=== PATIENT | female | born 1970 | race Caucasian/White ===

== ENCOUNTER 2019-08-09 20:44 | Emergency (ER) | payer OTHER ==
[~2019-08-09] VITALS: Ht 180.3 cm; Wt 221.4 kg
--- OUTSIDE RECORDS SUMMARY | 2019-08-09 20:49 | XMS REPORT | Clinical Summary ---
Author Author [facility] Address Unknown Phone Unavailable Care Team Providers Care Field Naturalist Name Role Phone Jena Lee ElioDanyMahnaz PCP Unavailable Allergies Comments Active Allergy Reactions Severity Noted Date Adhesive Tape Rash Low 09/08/2017 Azithromycin Diarrhea, Nausea And Vomiting Medications Not on file Active Problems Not on file Encounters Care Team Description Date Type Specialty Guera Verdugo MD SOB (shortness of breath) 10/11/2018 Hospital Radiology Encounter 10/11/2018 Orders Only General Internal Medicine 10/10/2018 Travel Guera Vredugo MD SOB (shortness of breath) (Primary Dx) 10/03/2018 Outside Orders Central Scheduling after 08/08/2018 Social History Date Tobacco Use Types Packs/Day Years Used Never Assessed Sex Assigned at Date Recorded Not on file Industry Job Start Date Occupation Not on file Not on file Not on file Travel End Travel History Travel Start No recent travel history available. Last Filed Vital Signs Time Taken Vital Sign Reading 10/11/2018 10:05 AM RN [facility] Blood Pressure 115/65 10/11/2018 10:05 AM RN [facility] Pulse 89 - Temperature - 10/11/2018 10:05 AM RN [facility] Respiratory Rate 14 10/11/2018 10:05 AM RN [facility] Oxygen Saturation 98% - Inhaled Oxygen - Concentration - Weight - - Height - - Body Mass Index - Plan of Treatment Not on file Procedures Comments Procedure Name Priority Date/Time Associated Diagnosis NM MYOCARDIAL PERFUSION Routine 10/12/2018 SOB (shortness of breath) SPECT, PHARM(LEXISCAN) 1:04 PM RN [facility] TREADMILL Routine 10/11/2018 TOLERANCE(NON-NUCLEAR 9:56 AM RN RE[facility] TREADMILL) ECG 12-LEAD Routine 10/11/2018 9:11 AM RN [facility] ECG 12-LEAD Routine 10/11/2018 9:11 AM RN [facility] Procedure Note - Interface, External Ris In - 10/11/2018 10:24 AM RN RE[facility] Ventricula r Rate 74 BPM Atrial Rate 74 BPM P-R Interval 156 ms QRS Duration 106 ms Q-T Interval 392 ms QTC Calculatio n(Bazett) 435 ms P Tram 33 degrees R Tram 61 degrees T Tram 53 degrees Normal sinus rhythm Normal ECG after 08/08/2018 Results * NM myocardial perfusion SPECT, pharm(Lexiscan) (10/12/2018 1:04 PM RN RE[facility]) Specimen Narrative Performed At FINAL REPORT [facility] PROCEDURE:Rest/Stress MYOCARDIAL PERFUSION SPECT with regadenoson\XA9\ CPT CODE:98022 INDICATION:Shortness of breath HISTORY:Cardiac risk factors: Diabetes, hypertension, obesity. Other cardiovascular history: No reported CAD. Recent cardiac symptoms: Shortness of breath. Current cardiovascular-related medications: HCTZ, atenolol, fosinopril. PROTOCOL:32.6 mCi of Tc-99m sestamibi was injected iv at rest, and SPECT (tomographic) images were obtained. Also, 31.9 mCi of Tc-99m sestamibi was injected iv at expected peak pharmacologic effect, and gated SPECT images were obtained. PRELIMINARY STRESS TEST DATA FROM NONINVASIVE CARDIOLOGY: Pharmacologic stress was by 10-second iv infusion of 0.4 mg of regadenoson. Radiotracer was injected 30 seconds after start of stress. Heart rate was 68 beats/min at rest and 103 beats/min (59 % of MPHR) at tracer injection. BP was 127/52 mmHg at rest and 111/50 mmHg at tracer injection. Stress was stopped for predetermined endpoint. The patient experienced headache, flushing, shortness of breath; treatment was not required. Preliminary ECG evaluation revealed sinus rhythm at rest and no ischemic changes with stress. (Final ECG interpretation and other stress and monitoring data are reported separately by Cardiology.) IMAGING FINDINGS:Study quality is good. Images obtained after rest and stress injections show normal LV activity. LV and RV volumes appear normal. Gated images obtained at rest after stress show normal LV wall motion and thickening. QGS LVEF is 60%. IMPRESSION: 1. Normal study.2. Appropriate pharmacologic stress. 3. Normal myocardial perfusion.4. Normal resting LV function.5. Normal extracardiac tracer distribution.6. No previous [facility] study for comparison. NONINVASIVE RISK STRATIFICATION: The above findings are considered low risk (<1% annual mortality rate) based on the following criterion: - Normal or small myocardial perfusion defect at rest or with stress ([facility]. 2012;59(9):858-10.) Signed: Shae Luu MD Report Verified Date/Time:10/12/2018 14:54:55 Reading Location: [address] Reading Room Procedure Note Interface, External Ris In - 10/12/2018 2:57 PM RN RE[facility] FINAL REPORT PROCEDURE: Rest/Stress MYOCARDIAL PERFUSION SPECT with regadenoson\XA9\ CPT CODE: 75137 INDICATION: Shortness of breath HISTORY: Cardiac risk factors: Diabetes, hypertension, obesity. Other cardiovascular history: No reported CAD. Recent cardiac symptoms: Shortness of breath. Current cardiovascular-related medications: HCTZ, atenolol, fosinopril. PROTOCOL: 32.6 mCi of Tc-99m sestamibi was injected iv at rest, and SPECT (tomographic) images were obtained. Also, 31.9 mCi of Tc-99m sestamibi was injected iv at expected peak pharmacologic effect, and gated SPECT images were obtained. PRELIMINARY STRESS TEST DATA FROM NONINVASIVE CARDIOLOGY: Pharmacologic stress was by 10-second iv infusion of 0.4 mg of regadenoson. Radiotracer was injected 30 seconds after start of stress. Heart rate was 68 beats/min at rest and 103 beats/min (59 % of MPHR) at tracer injection. BP was 127/52 mmHg at rest and 111/50 mmHg at tracer injection. Stress was stopped for predetermined endpoint. The patient experienced headache, flushing, shortness of breath; treatment was not required. Preliminary ECG evaluation revealed sinus rhythm at rest and no ischemic changes with stress. (Final ECG interpretation and other stress and monitoring data are reported separately by Cardiology.) IMAGING FINDINGS: Study quality is good. Images obtained after rest and stress injections show normal LV activity. LV and RV volumes appear normal. Gated images obtained at rest after stress show normal LV wall motion and thickening. QGS LVEF is 60%. IMPRESSION: 1. Normal study. 2. Appropriate pharmacologic stress. 3. Normal myocardial perfusion. 4. Normal resting LV function. 5. Normal extracardiac tracer distribution. 6. No previous [facility] study for comparison . NONINVASIVE RISK STRATIFICATION: The above findings are considered low risk (<1% annual mortality rate) based on the following criterion: - Normal or small myocardial perfusion defect at rest or with stress ([facility]. 2012;59(9):857-81.) Signed: Shae Luu MD Report Verified Date/Time: 10/12/2018 14:54:55 Reading Location: [place] [id number] Reading Room Performing Organization Address City/State/Zipcode Phone Number GE RIS * Treadmill tolerance(Non-Nuclear Treadmill) (10/11/2018 9:56 AM RN RE[facility]) Specimen Narrative Performed At Protocol Name ISO Group Time In Exercise Phase 00:01:00 Max. Systolic BP 111 mmHg Max Diastolic BP 50 mmHg Max Heart Rate 103 BPM Max Predicted Heart Rate 173 BPM Reason For Termination Predetermined end point Reason for Test Shortness of breath Target HR Formula (220 - Age)*100% Arrhythmias none Resting ECG NSR ST Changes No Significant Chages Overall Impression Indeterminate due to pharmacological stress Chest Pain none HR Response To Exercise BP Response To Exercise HCTZ,,Albuterol ATENOLOL FOSINOPRIL levothyroxine Confirmed by fellow Tanner Mckinney ([id number]) on 10/11/2018 10:46:44 AM Confirmed by MD CHAVARRIA JOSEPH P ([id number]) on 10/13/2018 6:17:29 AM Procedure Note Interface, External Ris In - 10/13/2018 6:17 AM RN RE[facility] Protocol Name SwapBeats Time In Exercise Phase 00:01:00 Max. Systolic BP 111 mmHg Max Diastolic BP 50 mmHg Max Heart Rate 103 BPM Max Predicted Heart Rate 173 BPM Reason For Termination Predetermined end point Reason for Test Shortness of breath Target HR Formula (220 - Age)*100% Arrhythmias none Resting ECG NSR ST Changes No Significant Chages Overall Impression Indeterminate due to pharmacological stress Chest Pain none HR Response To Exercise BP Response To Exercise HCTZ,,Albuterol ATENOLOL FOSINOPRIL levothyroxine Confirmed by fellow Tanner Mckinney ([id number]) on 10/11/2018 10:46:44 AM Confirmed by MD AURA, JESUS Wyatt ([id number]) on 10/13/2018 6:17:29 AM Performing Organization Address City/State/Zipcode Phone Number GE MUSE * ECG 12 lead (10/11/2018 9:11 AM RN RE[facility]) Specimen Narrative Performed At Ventricular Rate 74 BPM GE MUSE Atrial Rate 74 BPM P-R Interval 156 ms QRS Duration 106 ms Q-T Interval 392 ms QTC Calculation(Bazett) 435 ms P Tram 33 degrees R Tram 61 degrees T Tram 53 degrees Normal sinus rhythm Normal ECG No previous ECGs available Confirmed by MD GO YOCHAI ([id number]) on 10/11/2018 1:40:00 PM Procedure Note Interface, External Ris In - 10/11/2018 1:40 PM RN REHAB Ventricular Rate 74 BPM Atrial Rate 74 BPM P-R Interval 156 ms QRS Duration 106 ms Q-T Interval 392 ms QTC Calculation(Bazett) 435 ms P Tram 33 degrees R Tram 61 degrees T Tram 53 degrees Normal sinus rhythm Normal ECG No previous ECGs available Confirmed by MD GO YOCHAI ([id number]) on 10/11/2018 1:40:00 PM Performing Organization Address City/State/Zipcode Phone Number GE MUSE after 08/08/2018 Insurance Payer Benefit Subscriber ID Type Phone Address Plan / Group [facility] xxxxxxxxx HMO/POS CARE POS SELECT CHOICE
--- OUTSIDE RECORDS SUMMARY | 2019-08-09 20:49 | XMS REPORT ---
Author Author [facility] Address Unknown Phone Unavailable Care Team Providers Care Traffic Representative Name Role Phone Unavailable Unavailable Problems This patient has no known problems. Allergies, Adverse Reactions, Alerts This patient has no known allergies or adverse reactions. Medications This patient has no known medications. Results Test Description Test Time Test Comments Text Results Atomic Results Result Comments [facility], MULTI, PHARM, SPECT 2018-10-12 14:54:00 FINAL REPORT PROCEDURE: Rest/Stress MYOCARDIAL PERFUSION SPECT with regadenoson\XA9\ CPT CODE: 98777 INDICATION: Shortness of breath HISTORY: Cardiac risk [...] Normal extracardiac tracer distribution. 6. No previous [facility] study for comparison . NONINVASIVE RISK STRATIFICATION: The above findings are considered low risk (<1% annual mortality rate) based on the following criterion:- Normal or small myocardial perfusion defect at rest or with stress([employer]. 2012;59(9):857-81.) Signed: Levy Luu [facility] Verified Date/Time: 10/12/2018 14:54:55 Reading Location: [address] Reading Room
[2019-08-09] MEDS ORDERED: VANCOMYCIN HCL 1.5 GM in SODIUM CHLORIDE 0.9% 250ML 300 ML IV SCH (21:15)
[2019-08-09] MEDS ORDERED: LIDOCAINE HCL 1% LOCAL INJ 20 ML VIAL ONE (21:25)
[2019-08-09] MEDS ORDERED: VANCOMYCIN 1GM/NS 250 ML 250 ML ONE ×2 (22:16→22:17)
[2019-08-09] MEDS ORDERED: POTASSIUM CHLORIDE 20 MEQ TAB CR PO STA (23:23)
--- NOTE | 2019-08-09 23:27 | Diagnostic Imaging Report ---
EXAM: Right Lower Extremity Venous Duplex Ultrasound INDICATION: Right leg redness. COMPARISON: None TECHNIQUE: Gomez scale, color Doppler and spectral waveform analysis of the right lower extremity deep venous system was performed. FINDINGS: Very limited study due to body habitus. Common Femoral: Fully compressible with normal spontaneous waveforms. Proximal Greater Saphenous: Fully compressible. Femoral: The mid to distal superficial femoral vein is not visualized, limiting evaluation. The proximal superficial femoral vein was compressible. Proximal Deep Femoral: Normal spontaneous waveforms. Popliteal: Fully compressible with normal spontaneous waveforms. IMPRESSION: Very limited study due to body habitus. The mid to distal right superficial femoral vein is not visualized, limiting evaluation. Otherwise, no evidence of deep venous thrombosis within the visualized above the right calf veins. Signed by: Dr. Edward Doyle MD on 08/09/2019 11:24 PM
[2019-08-09] MEDS ORDERED: SODIUM CHLORIDE 0.9% 1000ML 1,000 ML IV SCH (23:30)
[2019-08-10] MEDS ORDERED: SODIUM CHLORIDE 0.9% 1000ML 1,000 ML ONE (00:54)
[2019-08-10] MEDS ORDERED: POTASSIUM CHLORIDE 20 MEQ TAB CR PO ONE (00:54)
[2019-08-10] MEDS ORDERED: ACETAMINOPHEN 325 MG TAB ONE (00:54)
== END 2019-08-10 01:30 | disposition other institution (70) ==
LOC: FSED 20:44
DX: M79.661 Pain in right lower leg (principal); L02.415 Cutaneous abscess of right lower limb; L03.115 Cellulitis of right lower limb; E87.6 Hypokalemia; K52.9 Noninfective gastroenteritis and colitis, unspecified; I10 Essential (primary) hypertension
CPT/HCPCS: 10061; 80053; 85025; 87040; 87071; 87186; 87205; 93971; 99284; J2001; J3370; J7030